=== PATIENT | female | born 1970 | race Caucasian/White ===

== ENCOUNTER 2017-02-28 11:13 | Inpatient (IN) | payer OTHER ==
[~2017-02-28] VITALS: Ht 157.5 cm; Wt 112.6 kg
[2017-02-28] MEDS ORDERED: HYDROCHLOROTHIA25 MG PO (11:56)
[2017-02-28] MEDS ORDERED: FLE10 PO (11:56)
[2017-02-28] MEDS ORDERED: TRAMADOL HCL50 MG PO (11:56)
[2017-02-28] MEDS ORDERED: CELECOXIB200 MG PO (11:56)
[2017-02-28] MEDS ORDERED: PERCOCET1 TAB PO (11:57)
[2017-02-28 13:11] LABS: microscopic required? NO
[2017-02-28 13:26] LABS: BASOPHIL % 0.3 % (0-2); PLATELET COUNT 366 x10^3mcL (130-400); RED CELL DISTRIBUTION WIDTH 13.4 % (11.5-14.5)
[2017-02-28 13:34] LABS: CALCIUM 9.2 mg/dL (8.5-10.1); CARBON DIOXIDE 28.2 mmol/L (21-32); CHLORIDE SERUM 103 mmol/L (98-107); GFR1 > 60 mL/min; GLUCOSE SERUM 115 mg/dL (74-106); POTASSIUM SERUM 3.8 mmol/L (3.5-5.1); SODIUM SERUM 140 mmol/L (136-145)
[2017-02-28 13:38] LABS: urine erythrocyte NEGATIVE (NEGATIVE)
[2017-02-28 13:39] LABS: ALBUMIN 3.8 g/dL (3.4-5.0); ALKALINE PHOSPHATASE 123 U/L (46-116); ALT/SGPT 40 U/L (14-59); AST/SGOT 22 U/L (15-37); BILIRUBIN TOTAL 0.5 mg/dL (0.20-1.00); TOTAL PROTEIN, SERUM 7.6 g/dL (6.4-8.2)
[2017-02-28 13:41] LABS: PHOSPHOROUS 3.4 mg/dL (2.5-4.9)
[2017-02-28 13:42] LABS: CHOLESTEROL/HDL RATIO 4.8
[2017-02-28 13:50] LABS: CK-MB 0.8 ng/mL (0-3.6)
[2017-02-28 13:58] LABS: AMPHETAMINE QUAL UR NONE DETECTED (NEG <=1000)
[2017-02-28 14:50] VITALS: BP 158/92
[2017-02-28 14:54] VITALS: Ht 157.5 cm; Wt 112.6 kg
[2017-02-28 15:29] LABS: T4(THYROXINE) 8.7 ug/dL (4.7-13.3)
[2017-02-28 15:30] LABS: FREE T4 0.98 ng/dL (0.76-1.46)
[2017-02-28 16:01] LABS: T3 TOTAL 1.06 ng/mL
[2017-02-28 17:33] VITALS: BP 131/88
[2017-02-28 20:50] VITALS: BP 144/93
[2017-03-01 05:44] VITALS: BP 153/95
[2017-03-01 09:16] VITALS: BP 149/89
[2017-03-01 09:39] VITALS: BP 148/103
[2017-03-01 13:59] VITALS: BP 137/89
[2017-03-01 18:19] VITALS: BP 141/86
[2017-03-01 22:04] VITALS: BP 123/75
[2017-03-02 06:23] VITALS: BP 134/75
[2017-03-02] MEDS ORDERED: ZES10 PO (09:56)
[2017-03-02] MEDS ORDERED: BACLOFEN10 MG PO (10:04)
[2017-03-02 10:10] VITALS: BP 121/82
[2017-03-02 10:16] VITALS: BP 121/82
== END 2017-03-02 14:15 | disposition home or self-care (01) | DRG 304 ==
LOC: ED 11:13 → DU 12:24
PROVIDERS: Emergency Medicine; ADMIT Family Medicine
DX: I16.1 Hypertensive emergency (principal); N17.0 Acute kidney failure with tubular necrosis; G89.29 Other chronic pain; I10 Essential (primary) hypertension; E78.5 Hyperlipidemia, unspecified; M54.9 Dorsalgia, unspecified; Z98.1 Arthrodesis status; Z96.653 Presence of artificial knee joint, bilateral; Z85.3 Personal history of malignant neoplasm of breast; Z90.710 Acquired absence of both cervix and uterus; Z88.0 Allergy status to penicillin; Z88.2 Allergy status to sulfonamides; Z88.6 Allergy status to analgesic agent
CPT/HCPCS: 83880; 84439; G0480; J7030; Q0092; Q0163

== ENCOUNTER 2018-09-09 08:29 | Emergency (ER) | payer OTHER ==
[~2018-09-09] VITALS: Ht 157.5 cm; Wt 113.4 kg
[~2018-09-09 08:29] MED LIST: BACLOFEN10 MG PO; CELECOXIB200 MG PO; FLE10 PO; HYDROCHLOROTHIA25 MG PO; PERCOCET1 TAB PO; TRAMADOL HCL50 MG PO; ZES10 PO
[2018-09-09 08:32] VITALS: Ht 157.5 cm; Wt 113.4 kg
[2018-09-09 11:18] VITALS: BP 120/78
== END 2018-09-09 11:18 | disposition home or self-care (01) ==
LOC: ED 08:29
DX: S16.1XXA Strain of muscle, fascia and tendon at neck level, initial encounter (principal); S09.8XXA Other specified injuries of head, initial encounter; R07.89 Other chest pain; I25.2 Old myocardial infarction; I10 Essential (primary) hypertension; G89.29 Other chronic pain; M54.9 Dorsalgia, unspecified; Z95.5 Presence of coronary angioplasty implant and graft; Z90.710 Acquired absence of both cervix and uterus; Z88.0 Allergy status to penicillin; Z88.2 Allergy status to sulfonamides; Z88.5 Allergy status to narcotic agent; V49.88XA Car occupant (driver) (passenger) injured in other specified transport accidents, initial encounter; Y93.89 Activity, other specified; Y92.89 Other specified places as the place of occurrence of the external cause; Y99.8 Other external cause status